=== PATIENT | male | born 1990 | race African-American/Black ===

== ENCOUNTER 2018-08-17 12:20 | Emergency (ER) | payer SELFPAY ==
[2018-08-17] MEDS ORDERED: Benzocaine 20% Topical Spray UD MUCMEM ONE (12:33)
[2018-08-17] MEDS ORDERED: Lidocaine 2% Viscous Solution 15 ML Cup PO ONE (12:33)
--- NOTE | 2018-08-17 12:41 | EDM.PDOC ---
ED HPI GENERAL MEDICAL PROBLEM - General Chief Complaint: ENT Problem Stated Complaint: POSS TOOTH ABSCESS RT SIDE Time Seen by Provider: 08/17/18 12:23 Source of Information: Reports: Patient History Limitations: Reports: No Limitations - History of Present Illness INITIAL COMMENTS - FREE TEXT/NARRATIVE: History of present illness: []Patient has right facial swelling that began today, he's had dental pain for 3 days. He denies any fevers chills, difficulty swallowing or difficulty breathing. Review of systems: As per history of present illness and below otherwise all systems reviewed and negative. Past medical history: As per history of present illness and as reviewed below otherwise noncontributory. Surgical history: As per history of present illness and as reviewed below otherwise noncontributory. Social history: No reported history of drug or alcohol abuse. Family history: As per history of present illness and as reviewed below otherwise noncontributory. Physical exam: General: Well developed, well nourished in NAD HEENT: Right cheek swelling Atraumatic, normocephalic, poor dentition, pupils reactive, negative for conjunctival pallor or scleral icterus, mucous membranes moist, throat clear, neck supple, nontender, trachea midline. Lungs: Clear to auscultation, breath sounds equal bilaterally, chest nontender. Heart: S1S2, regular, negative for clicks, rubs, or JVD. Abdomen: NABS, Soft, nondistended, nontender. Negative for masses or hepatosplenomegaly. Negative for costovertebral tenderness. Pelvis: Stable nontender. Genitourinary: Deferred. Rectal: Deferred. Extremities: Atraumatic, negative for cords or calf pain. Neurovascular unremarkable. Neuro: Awake, alert, oriented. Cranial nerves II through XII unremarkable. Cerebellum unremarkable. Motor and sensory unremarkable throughout. Exam nonfocal. Skin:warm and dry Diagnostics: None Therapeutics: Dental balls ED Course: Stable Impression: Dental abscess Prescriptions: Clindamycin, dental balls Plan: Take meds as directed, follow up with a dentist, return to ER if symptoms worsen or change. Definitive disposition and diagnosis as appropriate pending reevaluation and review of above. rt. upper dental Pain Score (Numeric/FACES): 1 - Related Data Allergies Allergy/AdvReac Type Severity Reaction Status Date / Time No Known Allergies Allergy Verified 08/17/18 12:38 Home Meds: Home Meds Clindamycin HCl 300 mg PO TID #30 capsule 08/17/18 [Rx] ED ROS ENT - Review of Systems Review Of Systems: See Below ED EXAM, ENT - Physical Exam Exam: See Below (See history of present illness) Course - Vital Signs Last Recorded V/S: Last Vital Signs Temp 97.5 F 08/17/18 12:36 Pulse 69 08/17/18 12:36 Resp 18 08/17/18 12:36 BP 130/72 08/17/18 12:36 Pulse Ox 98 08/17/18 12:36 - Orders/Labs/Meds Meds: Medications Discontinued Medications Generic Name Dose Route Start Last Admin Trade Name Freq PRN Reason Stop Dose Admin Benzocaine 2 each 08/17/18 12:33 Hurricaine One 20% MUCMEM 08/17/18 12:34 ONETIME ONE Clindamycin Phosphate 300 mg 08/17/18 12:42 Cleocin IM 08/17/18 12:43 ONETIME ONE Clindamycin Phosphate 300 mg 08/17/18 13:00 Cleocin IM 08/17/18 13:01 ONETIME ONE Lidocaine HCl 15 ml 08/17/18 12:33 Xylocaine 2% Viscous PO 08/17/18 12:34 ONETIME ONE Departure - Departure Time of Disposition: 13:05 Disposition: Home, Self-Care 01 Condition: Good Clinical Impression: Dental abscess - Discharge Information *PRESCRIPTION DRUG MONITORING PROGRAM REVIEWED*: No *COPY OF PRESCRIPTION DRUG MONITORING REPORT IN PATIENT MOISE: No Prescriptions: Clindamycin HCl 300 mg PO TID #30 capsule Referrals: PCP,None [Primary Care Provider] - Forms: ED Department Discharge Additional Instructions: The following information is given to patients seen in the emergency department who are being discharged to home. This information is to outline your options for follow-up care. We provide all patients seen in our emergency department with a follow-up referral. The need for follow-up, as well as the timing and circumstances, are variable depending upon the specifics of your emergency department visit. If you don't have a primary care physician on staff, we will provide you with a referral. We always advise you to contact your personal physician following an emergency department visit to inform them of the circumstance of the visit and for follow-up with them and/or the need for any referrals to a consulting specialist. The emergency department will also refer you to a specialist when appropriate. This referral assures that you have the opportunity for follow-up care with a specialist. All of these measure are taken in an effort to provide you with optimal care, which includes your follow-up. Under all circumstances we always encourage you to contact your private physician who remains a resource for coordinating your care. When calling for follow-up care, please make the office aware that this follow-up is from your recent emergency room visit. If for any reason you are refused follow-up, please contact the [facility] Emergency Department at and asked to speak to the emergency department charge nurse. Take meds as directed, follow up with your primary care physician, return to ER if symptoms worsen or change. [facility] [address] [place] [id number]
[2018-08-17] MEDS ORDERED: Clindamycin Phosphate 900 MG/6 ML SDV IM ONE ×2 (12:42→13:00)
== END 2018-08-17 13:30 | disposition home or self-care (01) ==
LOC: MW.ED 12:20
DX: K04.7 Periapical abscess without sinus (principal)
CPT/HCPCS: 96372; 99282; A9270; J3490

== ENCOUNTER 2019-02-20 01:47 | Emergency (ER) | payer SELFPAY ==
[2019-02-20] MEDS ORDERED: Tetracaine HCl/PF 0.5% 4 ML Bottle EYEBOTH ONE (02:04)
[2019-02-20] MEDS ORDERED: Erythromycin Base 0.5% Ophth Oint 1 GM Tube EYEBOTH ONE (02:15)
--- NOTE | 2019-02-20 02:22 | EDM.PDOC ---
ED HPI GENERAL MEDICAL PROBLEM - General Chief Complaint: ENT Problem Stated Complaint: PAIN IN BOTH EYES Time Seen by Provider: 02/20/19 02:01 - History of Present Illness INITIAL COMMENTS - FREE TEXT/NARRATIVE: HISTORY AND PHYSICAL: History of present illness: The patient is a 28-year-old male who does not wear glasses or contact lenses and was resting and relaxing last evening and felt fine and then suddenly started feeling gradual onset of bilateral eye pain with redness irritation and persistent watering. 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 The patient says that he felt fine all evening and then suddenly started having the symptoms while he was resting. He has not had cloudy drainage from his eyes and has no other systemic complaints such as sinus drainage and pressure headache fevers chills or upper respiratory infection. Patient says that the light does bother his eyes and his eyes are hypersensitive and irritated but he does not feel like his vision is particularly blurred. The patient is not on any medications and did not put any medication into his eyes. Review of systems: As per history of present illness and below otherwise all systems reviewed and negative. Past medical history: As per history of present illness and as reviewed below otherwise noncontributory. Surgical history: As per history of present illness and as reviewed below otherwise noncontributory. Social history: No reported history of drug or alcohol abuse. Family history: As per history of present illness and as reviewed below otherwise noncontributory. Physical exam: General: Well-developed well-nourished man who is nontoxic and vital signs are noted by me. visual acuity was 20/25 left eye 20/30 right eye and 20/20 both eyes HEENT: Atraumatic, normocephalic, pupils reactive, EOMs are intact, the sclera and conjunctiva are injected bilaterally but there is no foreign body appreciated in the lid area or seen on the eye itself, fluoroscein stain revealed some fine punctate uptake but no discrete area of corneal uptake or abrasion, periorbital areas are not swollen or ecchymotic and there is no crepitus, there is no discrete sinus tenderness on palpation, there is photophobia with my evaluation, negative for conjunctival pallor or scleral icterus, mucous membranes moist, throat clear, neck supple, nontender, trachea midline. Lungs: Clear to auscultation, breath sounds equal bilaterally, chest nontender. Heart: S1S2, regular rate and rhythm no overt murmurs Abdomen: Deferred Pelvis: Deferred Genitourinary: Deferred. Rectal: Deferred. Extremities: Atraumatic, full range of motion. Neurovascular unremarkable. Neuro: Awake, alert, oriented. Cranial nerves II through XII unremarkable. Cerebellum unremarkable. Motor and sensory unremarkable throughout. Exam nonfocal. 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 - Related Data Allergies Allergy/AdvReac Type Severity Reaction Status Date / Time No Known Allergies Allergy Verified 02/20/19 02:00 Home Meds: Home Meds . [No Known Home Meds] 02/20/19 [History] Past Medical History - Past Health History Medical/Surgical History: Denies Medical/Surgical History - Infectious Disease History Infectious Disease History: Reports: Chicken Pox Social & Family History - Family History Family Medical History: Noncontributory - Tobacco Use Smoking Status *Q: Current Every Day Smoker Years of Tobacco use: 10 Packs/Tins Daily: 0.5 - Recreational Drug Use Recreational Drug Use: Yes Recreational Drug Type: Reports: Marijuana/Hashish Recreational Drug Use Frequency: Daily ED ROS GENERAL - Review of Systems Review Of Systems: Comprehensive ROS is negative, except as noted in HPI. ED EXAM, GENERAL - Physical Exam Exam: See Below (See dictation) Course - Vital Signs Last Recorded V/S: Last Vital Signs Temp 36.2 C 02/20/19 01:56 Pulse 72 02/20/19 01:56 Resp 18 02/20/19 01:56 BP 123/63 02/20/19 01:56 Pulse Ox 98 02/20/19 01:56 - Orders/Labs/Meds Orders: Active Orders 24 hr Category Date Time Status Communication Order [RC] STAT Care 02/20/19 01:54 Active Erythromycin Base [Erythromycin 0.5% Ophth Oint] Med 02/20/19 02:15 Once 1 gm EYEBOTH ONETIME ONE Meds: Medications Discontinued Medications Generic Name Dose Route Start Last Admin Trade Name Kyler PRN Reason Stop Dose Admin Tetracaine HCl 0.5 ml 02/20/19 02:04 02/20/19 02:07 Tetracaine 0.5% Steri-Unit Mone EYEBOTH 02/20/19 02:05 1 dose ASDIRECTED ONE Administration Departure - Departure Time of Disposition: 02:20 Disposition: Home, Self-Care 01 Condition: Good Clinical Impression: Pain of both eyes, Irritation of both eyes - Discharge Information Referrals: PCP,None [Primary Care Provider] - Additional Instructions: The following information is given to patients seen in the emergency department who are being discharged to home. This information is to outline your options for follow-up care. We provide all patients seen in our emergency department with a follow-up referral. The need for follow-up, as well as the timing and circumstances, are variable depending upon the specifics of your emergency department visit. If you don't have a primary care physician on staff, we will provide you with a referral. We always advise you to contact your personal physician following an emergency department visit to inform them of the circumstance of the visit and for follow-up with them and/or the need for any referrals to a consulting specialist. The emergency department will also refer you to a specialist when appropriate. This referral assures that you have the opportunity for followup care with a specialist. All of these measure are taken in an effort to provide you with optimal care, which includes your followup. Under all circumstances we always encourage you to contact your private physician who remains a resource for coordinating your care. When calling for followup care, please make the office aware that this follow-up is from your recent emergency room visit. If for any reason you are refused follow-up, please contact the [facility] emergency department at and ask to speak to the emergency department charge nurse. [facility] [place] [address] Use the ointment you have been given here in the ED placing 1/4 inch ribbon in both eyes every 6 hours for the next [address] Lacri-Lube/ artificial tears for comfort which you can buy [id number]. Connect with our emergency medical services coordinator Dr. Barnett using resources given to above if you feel like the symptoms are not improving through the morning. Protect your eyes from sunlight and reflective light and compresses to for head and face. Return to ER as needed and as discussed Sepsis Event Note - Evaluation Sepsis Screening Result: No Definite Risk - Focused Exam Vital Signs: Vital Signs Temp Pulse Resp BP Pulse Ox 02/20/19 01:56 36.2 C 72 18 123/63 98 Date Exam was Performed: 02/20/19 Time Exam was Performed: 02:16 - My Orders Last 24 Hours: My Active Orders 02/20/19 01:54 Communication Order [RC] STAT 02/20/19 02:15 Erythromycin Base [Erythromycin 0.5% Ophth Oint] 1 gm EYEBOTH ONETIME ONE - Assessment/Plan Last 24 Hours: My Active Orders 02/20/19 01:54 Communication Order [RC] STAT 02/20/19 02:15 Erythromycin Base [Erythromycin 0.5% Ophth Oint] 1 gm EYEBOTH ONETIME ONE
== END 2019-02-20 02:38 | disposition home or self-care (01) ==
LOC: MW.ED 01:47
DX: H57.13 Ocular pain, bilateral (principal); H57.89 Other specified disorders of eye and adnexa; F17.210 Nicotine dependence, cigarettes, uncomplicated
CPT/HCPCS: 99283; A9270